=== PATIENT | male | born 1965 | race Caucasian/White ===

== ENCOUNTER → 2018-02-17 | Outpatient (CLI) | payer OTHER ==
[2015-11-08 16:18] VITALS: BP 116/75
--- NOTE | 2018-02-17 12:51 | RAD ---
HISTORY: Low back pain Study: Three views of the lumbar spine Comparison: None Findings: Images demonstrate 5 [id number] lumbar vertebral bodies. The lumbar vertebral body heights are r elatively maintained. No evidence of acute displaced fracture or significant subluxation is identifie d. Degenerate facet changes are seen throughout the lumbar spine. Mild multilevel osteophytosis is al so noted. A large amount of stool is seen throughout the visualized colon. IMPRESSION: 1. Degenerative changes as noted above. Reported By:
--- NOTE | 2018-02-17 13:25 | RAD ---
Examination: X-rays of the right hip. Clinical history: Pain in lower back and right hip. Technique: An AP view of the pelvis and a frog-leg lateral view of the right hip were obtained. Comparison: None available. Findings: No acute fracture, dislocation, or destructive bony lesion is noted. No arthropathy is noted at the hips bilaterally. A soft tissue opacity is seen overlying the pelvis, likely a partially filled bladder. Impression: 1. No acute fracture or dislocation. Reported By:
== END ==
LOC: RAD 11:35
PROVIDERS: ATTEND Nurse Practitioner Family
DX: M54.17 Radiculopathy, lumbosacral region (principal); M25.551 Pain in right hip
CPT/HCPCS: 72100; 73501